=== PATIENT | male | born 1945 | race Caucasian/White ===

== ENCOUNTER 2017-06-19 08:00 | Observation (INO) ==
[2017-06-19 08:46] VITALS: BMI 36.5
--- NOTE | 2017-06-19 10:24 | Cardiology History & Physical ---
History of Present Illness Chief complaint: PVCs HPI: Triston is a 71 year old male who is well known to Dr. Rivera with a history of premature atrial and ventricular depolarization, HTN, HLD and DM who is being admitted to observation for antiarrhythmic therapy on Flecainide. Review of Systems - Constitutional Constitutional: Absent: chills, fatigue, fever(s) - EENMT Eyes: Absent: change in vision Balance: Absent: vertigo Mouth/Throat: Absent: sore throat - Cardiovascular Cardiovascular: Absent: chest pain, palpitations, syncope, dyspnea on exertion Vascular: Absent: pedal edema - Respiratory Respiratory: Absent: cough, dyspnea, dyspnea on exertion - Gastrointestinal Gastrointestinal: Absent: abdominal pain, diarrhea, nausea, vomiting - Genitourinary Genitourinary: Absent: dysuria - Integumentary/Breasts Integumentary: Absent: rash - Neurological Neurological: Absent: dizziness - Endocrine Endocrine: Absent: palpitations PFSH Patient Stated Medical History Cardiac Arrhythmia Yes: A-fib Pneumonia Yes: hx of Diabetes Mellitus Type 2 Yes Cellulitis Yes: hx of on knee Clinic Medical History DM2 (diabetes mellitus, type 2) (Acute Medical) Dyslipidemia (Acute Medical) HTN (hypertension) (Acute Medical) Family History: Father - Unknown heart disease - Social History Smoking status: Never smoker Substance use type: does not use Alcohol intake frequency: does not drink Household members: spouse Current occupational status: retired Current residence: Apartment/Private Home Medications Home Medications Medication Instructions Recorded Confirmed Type Lipitor (atorvastatin) 10 mg tablet 10 mg PO DAILY 12/27/16 06/19/17 History lancets 33 gauge See Dose Instructions .ROUTE 12/27/16 History .MEDSUPPLY Glucophage XR (metformin ER) 500 1,000 mg PO DAILY 90 Days 12/31/16 06/19/17 History mg tablet, 24 hr Glucotrol (glipizide) 5 mg tablet 5 mg PO DAILY 30 Days 12/31/16 06/19/17 History Norvasc (amlodipine) 10 mg tablet 10 mg PO DAILY 30 Days 12/31/16 06/19/17 History metoprolol tartrate 25 mg tablet 25 mg PO BID 30 Days 05/16/17 06/19/17 History Lisinopril/Hctz 03/07.5 [Prinzide 1 tab PO DAILY 06/20/17 06/20/17 History 20/12.5] Allergies Allergy/AdvReac Type Severity Reaction Status Date / Time Penicillins Allergy Intermediate Verified 06/20/17 09:21 Exam Vital signs: Temperature 97.3 F 06/19/17 09:08 Pulse Rate 60 06/19/17 09:08 Respiratory Rate 18 06/19/17 09:08 Blood Pressure 139/67 06/19/17 09:08 Pulse Oximetry 96 06/19/17 09:08 - Constitutional no acute distress, well nourished, cooperative - Routine HEENT Exam Head: Present: normocephalic ENT: Present: mucous membranes moist - Routine Neck Exam Absent: JVD, carotid bruit - Routine Chest/Breast/Axilla Exam Chest wall: Absent: tenderness - Routine Respiratory Exam Present: CTA bilaterally. Absent: rales, wheezes - Routine Cardiovascular Exam Present: RRR, no murmur. Absent: JVD - Routine Abdominal Exam Present: soft, normoactive bowel sounds - Routine Extremities Exam Present: no edema - Routine Skin Exam Present: intact, dry, warm - Routine Neurological Exam Present: alert, oriented X3 - Routine Psychiatric Exam Present: normal affect, normal thought process Results 06/19/17 08:38 06/20/17 04:27 Cardiac Enzymes 06/19/17 Range/Units 08:38 AST 16 L (17-59) U/L CBC 06/19/17 Range/Units 08:38 WBC 5.9 (4.5-11.0) T/MM3 RBC 4.66 (4.50-5.90) M/MM3 Hgb 14.6 (13.5-17.5) GM/DL Hct 44.8 (41-53) % Plt Count 175 (130-400) T/MM3 Neut # (Auto) 2.7 (1.8-7.7) T/MM3 Lymph # (Auto) 2.4 (1-4.8) T/MM3 Baker # (Auto) 0.5 (0-0.8) T/MM3 Eos # (Auto) 0.2 (0-0.5) T/MM3 Baso # (Auto) 0.1 (0-0.2) T/MM3 Comprehensive Metabolic Panel 06/19/17 Range/Units 08:38 Sodium 142 (134-144) MEQ/L Potassium 3.9 (3.6-5) MEQ/L Chloride 106 (98-107) MEQ/L Carbon Dioxide 24 (22-30) MEQ/L BUN 23.0 H (9-20) MG/DL Creatinine 1.3 (0.8-1.5) MG/DL Glucose 163 H (75-110) MG/DL Calcium 8.6 (8.4-10.2) MG/DL AST 16 L (17-59) U/L ALT 26 (21-72) U/L Alkaline Phosphatase 47 (38-126) U/L Total Protein 6.9 (6.3-8.2) G/DL Albumin 3.6 (3.5-5.0) G/DL Intake and Output 06/18/17 06/19/17 06/19/17 22:59 06:59 14:59 Other: Weight 300 lb 0.786 oz Patient Weight 06/20/17 06:59 Weight 300 lb 0.786 oz Laboratory Results - last 24 hr 06/19/17 06/19/17 08:38 08:38 WBC 5.9 RBC 4.66 Hgb 14.6 Hct 44.8 MCV 96.1 MCH 31.3 MCHC 32.6 RDW Std Deviation 46.8 Plt Count 175 MPV 10.3 Immature Gran % (Auto) 0.2 Neut % (Auto) 45.6 Lymph % (Auto) 41.4 Baker % (Auto) 8.0 Eos % (Auto) 3.6 Baso % (Auto) 1.2 Neut # (Auto) 2.7 Lymph # (Auto) 2.4 Baker # (Auto) 0.5 Eos # (Auto) 0.2 Baso # (Auto) 0.1 Abs Immat Gran (auto) 0.01 Turbidity < 20 Sodium 142 Potassium 3.9 Chloride 106 Carbon Dioxide 24 Anion Gap 12 BUN 23.0 H Creatinine 1.3 GFR Calculation 55 BUN/Creatinine Ratio 18 Glucose 163 H Calculated Osmolality 281 H Calcium 8.6 Magnesium 1.9 Total Bilirubin 0.70 Icterus Index < 2 AST 16 L ALT 26 Alkaline Phosphatase 47 Total Protein 6.9 Albumin 3.6 Globulin 3.3 Albumin/Globulin Ratio 1.1 TSH 1.89 Specimen Hemolysis < 15 EKG interpretations - EKG EKG results cardiology: sinus rhythm - Dysrhythmias Ventricular dysrhythmias: ventricular premature complexes Hospital Course This is a general summary of the patient's hospital course. For more details refer to the complete medical record. Time spent with patient: 25 - 35 minutes DVT Prophylaxis: SCD's Assessment and Plan - Attestation Attestation Narrative: 06/20/17 13:06 Recommendation After examining the patient I agree with the above assessment. I am involved in the formulation of the patient's plan of care. - Assessment and Plan (1) Atrial premature depolarization Status: Acute antiarrhythmic therapy on Flecainide. (2) Ventricular premature depolarization Status: Acute antiarrhythmic therapy on Flecainide. (3) Essential (primary) hypertension Status: Acute well controlled on medical therapy, continue current therapy (4) Mixed hyperlipidemia Status: Acute takes atorvastatin, PCP manages (5) Type 2 diabetes mellitus without complications Status: Acute
[2017-06-19] MEDS: FLECAINIDE 50 MG TABLET PO SCH ×2 (10:29→20:34)
[2017-06-19] MEDS ORDERED: ATORVASTATIN 10 MG TABLET PO SCH (21:00)
[2017-06-19] MEDS: AMLODIPINE 10 MG TABLET PO SCH (21:06)
[2017-06-20] MEDS: GlipiZIDE 5 MG TABLET PO SCH ×2 (07:20→10:00)
[2017-06-20 07:21] VITALS: BP 126/68; RESP 18; TEMP 97.6; O2SAT 92
[2017-06-20 08:34] VITALS: PULSE 65
[2017-06-20] MEDS: FLECAINIDE 50 MG TABLET PO SCH (08:36)
[2017-06-20] MEDS: AMLODIPINE 10 MG TABLET PO SCH (08:37)
[2017-06-20] MEDS ORDERED: LISINOPRIL 20 MG TABLET PO SCH (09:00)
[2017-06-20] MEDS ORDERED: AMLODIPINE 10 MG TABLET PO SCH (09:00)
[2017-06-20] MEDS ORDERED: LISINOPRIL/HCTZ 20/12.5 MG TABLET PO SCH (10:00)
[2017-06-20] MEDS ORDERED: ATORVASTATIN 10 MG TABLET PO SCH (21:00)
== END 2017-06-20 10:42 | disposition home or self-care (01) ==
LOC: SRG
PROVIDERS: ADMIT Internal Medicine Cardiovascular Disease; ATTEND Internal Medicine Cardiovascular Disease